=== PATIENT | female | born 1995 | race Caucasian/White ===

== ENCOUNTER 2018-01-27 13:50 | Emergency (ER) | payer OTHER ==
[2018-01-27 13:51] VITALS: BMI 30.1
[2018-01-27 13:57] VITALS: BP 147/78; PULSE 118; RESP 20; TEMP 98.7; O2SAT 98
--- NOTE | 2018-01-27 14:03 | ED PDOC ---
HPI: General Adult Time Seen by Provider: 01/27/18 13:57 Chief Complaint (Nursing): Back Pain Chief Complaint (Provider): buttocks pain History Per: Patient Additional Complaint(s): 22 year old female presents to the ED for an evaluation of possible infection to buttocks area. Patient states she feels pain and she is unable to sit. She took Tylenol last night which did not help. PMD: Jony Camp Past Medical History Reviewed: Historical Data, Nursing Documentation, Vital Signs Vital Signs: Last Vital Signs Temp 98.7 F 01/27/18 13:53 Pulse 118 H 01/27/18 13:53 Resp 20 01/27/18 13:53 BP 147/78 01/27/18 13:53 Pulse Ox 98 01/27/18 14:14 - Medical History PMH: No Chronic Diseases - Surgical History Surgical History: No Surg Hx - Family History Family History: States: No Known Family Hx - Living Arrangements Living Arrangements: With Family - Social History Current smoker - smoking cessation education provided: No Alcohol: None Drugs: Denies - Home Medications Home Medications: Ambulatory Orders Medication Instructions Recorded Fexofenadine/Pseudoephedrine 1 each PO BID PRN #24 tab.er.12h 03/30/17 [[place]-D 12 Hour Tablet] Azithromycin [Zithromax] 250 mg PO DAILY #6 tab 03/31/17 Amoxicillin/Clavulanate [Augmentin 1 tab PO BID #14 tab 01/27/18 875 MG-125 MG] Clindamycin [Cleocin] 300 mg PO QID #28 cap 01/27/18 Ibuprofen [Motrin Tab] 800 mg PO Q8 PRN #20 tab 01/27/18 - Allergies Allergies/Adverse Reactions: Allergies Allergy/AdvReac Type Severity Reaction Status Date / Time No Known Allergies Allergy Verified 03/30/17 21:49 Review of Systems ROS Statement: Except As Marked, All Systems Reviewed And Found Negative Constitutional: Negative for: Fever Skin: Positive for: Other (possible infection to buttocks area) Physical Exam - Reviewed Nursing Documentation Reviewed: Yes Vital Signs Reviewed: Yes - Physical Exam Appears: Positive for: Well, Non-toxic, No Acute Distress Head Exam: Positive for: ATRAUMATIC, NORMAL INSPECTION, NORMOCEPHALIC Skin: Positive for: Normal Color, Rash (indurated abscess to gluteal cleft with localized erythema and no drainage) Eye Exam: Positive for: Normal appearance Extremity: Positive for: Normal ROM Neurologic/Psych: Positive for: Alert, Oriented (x3) - ECG O2 Sat by Pulse Oximetry: 98 (RA) Pulse Ox Interpretation: Normal Medical Decision Making Medical Decision Making: Time: 1356 Initial Impression: 22 year old female with pilonidal abscess Indurated abscess noted with no fluctuation, there is no indication at this time for incision and drainage. Patient advised to do warm compresses with epsom salts. Prescriptions given for Augmentin, clindamycin and Motrin. Advised wound recheck in 2-3 days. Scribe Attestation: Documented by Lima Smith, acting as a scribe for Melany Atkins PA-C Provider Scribe Attestation: All medical record entries made by the Scribe were at my direction and personally dictated by me. I have reviewed the chart and agree that the record accurately reflects my personal performance of the history, physical exam, medical decision making, and the department course for this patient. I have also personally directed, reviewed, and agree with the discharge instructions and disposition. Disposition - Clinical Impression Clinical Impression: Pilonidal abscess - Patient ED Disposition Is Patient to be Admitted: No Counseled Patient/Family Regarding: Diagnosis - Disposition Referrals: Jony Camp MD [Family Provider] - Disposition: Routine/Home Disposition Time: 14:02 Condition: STABLE Additional Instructions: WARM COMPRESSES WITH EPSOM SALTS TO AFFECTED AREA OFTEN OR POSSIBLE. TAKE RX MEDS DIRECTED. FOLLOW UP WITH PRIMARY CARE DOCTOR IN 2-3 DAYS Prescriptions: Amoxicillin/Clavulanate [Augmentin 875 MG-125 MG] 1 tab PO BID #14 tab Clindamycin [Cleocin] 300 mg PO QID #28 cap Ibuprofen [Motrin Tab] 800 mg PO Q8 PRN #20 tab PRN Reason: Pain, Moderate (4-7) Instructions: Pilonidal Cyst Forms: [employer] ([place]onegasque)
== END 2018-01-27 14:16 | disposition home or self-care (01) ==
LOC: H.ER 13:50
DX: L05.01 Pilonidal cyst with abscess (principal)